=== PATIENT | female | born 1980 | race Caucasian/White ===

== ENCOUNTER → 2016-11-03 | Outpatient (CLI) | payer OTHER ==
[~2016-11-03] MED LIST: MTRUNK PO; PRENTAB26 PO; TYLUNK PO
== END | disposition home or self-care (01) ==
LOC: C.PAPS 15:20
PROVIDERS: ATTEND Obstetrics & Gynecology
DX: Z01.419 Encounter for gynecological examination (general) (routine) without abnormal findings (principal)

== ENCOUNTER 2017-06-12 11:51 | Emergency (ER) | payer OTHER ==
[~2017-06-12] VITALS: Ht 154.9 cm; Wt 52.5 kg
[2017-06-12 11:54] VITALS: TEMP 36.9; Ht 154.9 cm; Wt 52.5 kg
[2017-06-12] MEDS ORDERED: PRLSR20 PO (12:16)
[2017-06-12] MEDS ORDERED: CLR10 PO (12:16)
[2017-06-12] MEDS ORDERED: BCPILLS PO (12:16)
--- NOTE | 2017-06-12 13:29 | DIAGNOSTIC IMAGING REPORT ---
RIGHT HAND 3 VIEWS CLINICAL HISTORY: Right hand and thumb pain. FINDINGS: 3 views of the right hand are obtained. No prior studies are available for comparison at the time of dictation. The skeletal structures are well mineralized. No fracture is seen. The joint spaces of the hand are well-maintained. The overlying soft tissues are normal in appearance. IMPRESSION: No acute bony abnormality is identified. Electronically signed by: Luis Daniel Rodriguez M.D. 06/12/2017 1:28 PM Dictated Date/Time: 06/12/2017 1:26 PM
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
[2017-06-12 15:11] VITALS: BP 108/82; PULSE 54; O2SAT 99
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
== END 2017-06-12 15:13 | disposition home or self-care (01) ==
LOC: C.EDB 11:53 → C.EDD 15:13
DX: S06.0X0A Concussion without loss of consciousness, initial encounter (principal); M79.644 Pain in right finger(s); S00.93XA Contusion of unspecified part of head, initial encounter; M25.511 Pain in right shoulder; V89.2XXA Person injured in unspecified motor-vehicle accident, traffic, initial encounter

== ENCOUNTER → 2017-11-23 | Outpatient (CLI) | payer OTHER ==
[~2017-11-23] MED LIST changes: +BCPILLS PO; +CLR10 PO; -MTRUNK PO; -PRENTAB26 PO; +PRLSR20 PO; -TYLUNK PO
== END | disposition home or self-care (01) ==
LOC: C.PAPS 14:44
PROVIDERS: ATTEND Obstetrics & Gynecology
DX: Z12.4 Encounter for screening for malignant neoplasm of cervix (principal)

== ENCOUNTER → 2017-12-21 | Outpatient (CLI) | payer OTHER | END | disposition home or self-care (01) | LOC: C.PAPS 14:37 | PROVIDERS: ATTEND Obstetrics & Gynecology | DX: R87.612 Low grade squamous intraepithelial lesion on cytologic smear of cervix (LGSIL) (principal) ==

== ENCOUNTER → 2017-12-21 | Outpatient (CLI) | payer OTHER | END | disposition home or self-care (01) | LOC: C.PATHSPEC 12-14 14:31 | PROVIDERS: ATTEND Obstetrics & Gynecology | DX: R87.612 Low grade squamous intraepithelial lesion on cytologic smear of cervix (LGSIL) (principal); R87.613 High grade squamous intraepithelial lesion on cytologic smear of cervix (HGSIL) ==